=== PATIENT | male | born 1975 | race Caucasian/White ===

== ENCOUNTER 2024-12-04 12:25 | Emergency (ER) | payer OTHER | END 2024-12-04 14:02 | disposition home or self-care (01) | LOC: NAV ERS 12:25 | DX: S50.01XA Contusion of right elbow, initial encounter (principal); G89.29 Other chronic pain; M25.512 Pain in left shoulder; I10 Essential (primary) hypertension; W19.XXXA Unspecified fall, initial encounter; W55.22XA Struck by cow, initial encounter; Y93.89 Activity, other specified; Y92.89 Other specified places as the place of occurrence of the external cause | CPT/HCPCS: 99283 ==